=== PATIENT | male | born 1990 | race Caucasian/White ===

== ENCOUNTER 2016-10-01 20:26 | Emergency (ER) | payer SELFPAY ==
[~2016-10-01] VITALS: Wt 66.5 kg
[2016-10-01] MEDS ORDERED: DIPHTH/TET/ACEL PERTUSS (ADULT) 0.5 ML VIAL IM* ONE (23:00)
[2016-10-01] MEDS ORDERED: HYDROCODONE/APAP (5/325) TAB PO ONE (23:00)
--- NOTE | 2016-10-01 23:59 | RADRPT ---
PROCEDURE: CT HEAD WITHOUT CONTRAST: CLINICAL INDICATION: 26 years of age male, laceration to back of head . COMPARISON: None TECHNIQUE: CT of the head was performed without IV contrast. Dose information: The estimated radiation dose (CTDIvol mGy) for each series in this exam is 45 . The estimated cumulative dose (DLP mGy-cm) is 630 . FINDINGS: Parenchyma: Negative for evidence of acute intracranial hemorrhage, mass effect or large territory i nfarct. Ventricles and extra-axial spaces: Appropriate for age. Visualized paranasal sinuses: Clear. Mastoid air cells: Clear. Bones: No focal abnormality. Additional comment: Minimal scalp soft tissue swelling at the posterior vertex. IMPRESSION: Minimal scalp swelling at the posterior vertex. Negative for evidence of underlying fracture and ne gative for evidence of acute intracranial injury. RPTAT: HCTS Physician Tanya Date Time Electronically viewed and signed by Physician Tanya on 10/02/2016 00:03 /
[2016-10-02] MEDS ORDERED: IBUP-1542 PO (00:10)
--- NOTE | 2016-10-02 00:10 | ERD ---
ER Documentation Chief Complaint Date/Time DATE: 10/01/16 Chief Complaint Scalp laceration, Head injury HPI The patient is a 26-year-old male who presents to the Emergency Department with complaint of scalp laceration s/p head injury. The patient reports that he was at work, when a very large piece of wood was accidentally dropped several floors up, and landed directly onto the patient's head. The patient is uncertain if he had momentary loss of consciousness, but otherwise denies seizure-like activity or syncope. Denies visual changes, diplopia, blurred vision or vision loss. Denies nausea, vomiting, neck pain, neck stiffness, or dizziness. Denies numbness, paresthesias or weakness of the distal extremities. Denies confusion or change in mentation. The patient does note that he sustained a laceration to the scalp, with bleeding that has resolved s/p application of pressure. Tetanus status is unknown. No other complaints at this time. ROS All systems reviewed and are negative except as per history of present illness. Medications Home Meds Active Scripts Ibuprofen* (Motrin*) 600 Mg Tab, 600 MG PO Q6, #30 TAB Prov:SAFIA DALE PA-C 10/02/16 Allergies Allergies: Coded Allergies: No Known Allergy (Unverified , 10/01/16) PMhx/Soc Medical and Surgical Hx: pt denies Medical Hx, pt denies Surgical Hx Hx Alcohol Use: No Hx Substance Use: No Hx Tobacco Use: No Smoking Status: Never smoker Physical Exam Vitals Vital Signs Date Time Temp Pulse Resp B/P Pulse Ox O2 Delivery O2 Flow Rate FiO2 10/01/16 20:51 98.4 66 20 135/75 98 Physical Exam GENERAL: Well-developed, well-nourished, male, in no acute distress. HEENT: Head is normocephalic, atraumatic. Posterior vertex hematoma with overlying laceration. No scleral pallor or icterus. No raccoon eyes. Pupils equal, round and reactive to light. Moist mucous membranes. No pharyngeal erythema or exudates. No aguayo's sign. No hemotympanum. No nasal CSFl eak. NECK: Supple. No masses, no tenderness, no lymphadenopathy. Trachea midline. No nuchal rigidity. No posterior midline tenderness. RESPIRATORY: Lungs are clear to auscultation bilaterally. No rales, rhonchi or wheezing. Equal breath sounds. CARDIOVASCULAR: Regular rate and rhythm. S1 and S2 normal. No murmurs, rubs, or gallops. GASTROINTESTINAL: Abdomen is soft, non-tender, and non-distended. EXTREMITIES: No clubbing, cyanosis, or edema. Moving all extremity. No focal swelling or erythema. Muscle tone is normal. NEUROLOGIC: The patient is alert, awake, and oriented. No focal neurologic deficits. Cranial nerves are grossly intact. Gait is observed and normal. There is no ataxia. Motor and sensation grossly intact. Speech is normal. INTEGUMENT: There is a 3 cm linear laceration to the posterior vertex of the scalp. No foreign bodies visualized. No tendon injuries. No surrounding erythema or edema. No active bleeding. PSYCHIATRIC: Cooperative, appropriate. Results 24 hrs Current Medications Medications (Trade) Dose Ordered Sig/Isak Route PRN Reason Start Time Stop Time Status Last Admin Dose Admin Diphtheria/ Tetanus/Acell Pertussis (Adacel) 0.5 ml ONCE ONCE IM* 10/01/16 23:00 10/01/16 23:01 DC 10/01/16 22:55 Acetaminophen/ Hydrocodone Bitart ([place]nee (5/325)) 1 tab ONCE ONCE PO 10/01/16 23:00 10/01/16 23:01 DC 10/01/16 22:54 Bacitracin (Bacitracin Oint (Ud)) 1 applic ONCE ONCE TOP 10/02/16 00:30 10/02/16 00:31 DC 10/02/16 00:47 Procedures/MDM The patient's case was reviewed and discussed with ED attending/supervising physician, Dr. Nguyễn, who agrees with the plan of care including treatment and advanced imaging as appropriate. DIAGNOSTIC TESTS AND INTERPRETATION: PROCEDURE: CT HEAD WITHOUT CONTRAST: CLINICAL INDICATION: 26 years of age male, laceration to back of head . COMPARISON: None TECHNIQUE: CT of the head was performed without IV contrast. Dose information: The estimated radiation dose (CTDIvol mGy) for each series in this exam is 45 . The estimated cumulative dose (DLP mGy-cm) is 630 . FINDINGS: Parenchyma: Negative for evidence of acute intracranial hemorrhage, mass effect or large territory infarct. Ventricles and extra-axial spaces: Appropriate for age. Visualized paranasal sinuses: Clear. Mastoid air cells: Clear. Bones: No focal abnormality. Additional comment: Minimal scalp soft tissue swelling at the posterior vertex. IMPRESSION:Minimal scalp swelling at the posterior vertex. Negative for evidence of underlying fracture and negative for evidence of acute intracranial injury. Physician Tanya Date Time Electronically viewed and signed by Physician Tanya on 10/02/2016 00: 03 EMERGENCY DEPARTMENT COURSE: The patient was stable throughout the ED course. Tdap administered. Shawnee administered for pain control. CT head performed. Laceration repair performed. On reevaluation, the patient reports no new complaints and decreased pain. PROCEDURAL NOTE: Laceration repair. INDICATIONS: 3 cm linear laceration to the scalp. CONSENT: Consent was obtained from the patient prior to the procedure. Indications, risks and benefits were explained at length. PROCEDURAL SUMMARY: The patient was positioned appropriately. Normal saline and Betadine were used for wound irrigation. The wound was then explored, and no foreign body visualized, no tendon injury. The area was prepared and draped in the usual sterile manner with the wound exposed. Four shanthi are placed with good wound closure and good wound approximation. Bleeding was minimal. The patient tolerated the procedure well without complications. The wound was dressed with bacitracin. Standard post procedure care was explained and return precautions were given. On re-evaluation, the patient was resting comfortable with no pain localized to the site of injury. He was neurovascularly and neurologically intact post-procedure. MEDICAL DECISION MAKING: The patient is a 26-year-old male presenting to the Emergency Department with a posterior scalp laceration and hematoma s/p head injury. Otherwise, the patient had no significant deformity, step-offs, altered mental status, or neurologic deficits on physical examination. CT head performed revealed no acute intracranial hemorrhage. No clinical evidence of significant head injury, basilar skull fracture, intracranial bleeding, spinal cord injury or any other emergent medical condition. The patient's condition was stable throughout their stay in the emergency department without any neurologic deficits present. Upon re-evaluation, the patient reports no new complaints. The patient's scalp laceration was stapled. He had good wound closure and wound approximation, and tolerated the procedure well. The patient was neurovascularly and neurologically intact prior to and status post laceration repair. Standard post-procedure care was explained to the patient at length. Upon my review and interpretation of the patient's presentation, I believe that the patient's symptoms are most consistent with scalp laceration and head injury. At this time the patient is in stable condition, and no signs of altered mental status, and therefore can be discharged home with strict return precautions for signs of deteriorating or worsening condition, including vomiting, altered mental status, neurologic deficit, headache, persistent fever above 100.4 F, loss of consciousness, syncope, deformities, seizure. The patient is instructed to follow up with her primary care provider within 2 days for wound check, re-evaluation and further management, and staple removal in 7 days, or return to the ER sooner for any new or worsening symptoms. I shared my medical decision making and plan with the patient at length and in great detail , and they verbally understand and agree with the plan for further observation and care as an outpatient. At the time of discharge, all questions were answered. Departure Diagnosis: Primary Impression: Scalp laceration Encounter type: initial encounter Qualified Code: S01.01XA - Scalp laceration, initial encounter Additional Impression: Closed head injury Encounter type: initial encounter Qualified Code: S09.90XA - Closed head injury, initial encounter Condition: Stable Patient Instructions: HEAD INJURY, No Wake-Up (Adult), Laceration, Scalp Additional Instructions: Llame al doctor MAANA y ekaterina harrison ROBERT PARA DENTRO DE 2-3 [facility].Dgale a la secretaria que nosotros le instruimos hacer esta robert.Avise o llame si sung condicin se empeora antes de la robert. Regresa aqui si peor o no mejor. WOUND CHECK:CONSULTE A SUNG MDICO EN 2 negron para maria teresa SUNG HERIDA. SUTURE REMOVAL:CONSULTE A SUNG MDICO PARA SACAR SUNG GRAPAS EN 7 negron. SAFIA DALE PA-C Oct 02, 2016 00:10
[2016-10-02] MEDS ORDERED: BACITRACIN 0.9 GM OINT TOP ONE (00:30)
== END 2016-10-02 01:06 | disposition home or self-care (01) ==
LOC: FTE 20:26
DX: S01.01XA Laceration without foreign body of scalp, initial encounter (principal); S09.90XA Unspecified injury of head, initial encounter; W20.8XXA Other cause of strike by thrown, projected or falling object, initial encounter; Y92.89 Other specified places as the place of occurrence of the external cause; Z23 Encounter for immunization
CPT/HCPCS: 70450; 90471; 90715